=== PATIENT | female | born 1955 | race Caucasian/White ===

== ENCOUNTER 2016-06-13 17:42 | Emergency (ER) | payer BC ==
[~2016-06-13] VITALS: Ht 170.2 cm; Wt 81.2 kg
[~2016-06-13 17:42] MED LIST: BUSPAR15 MG PO; DICLOFENAC SODI50 MG PO; KLONOPIN0.5 M1 PO; PROZAC40 MG PO; TYLENOL ARTHRI650 MG PO
[2016-06-13 18:10] LABS: HEMATOCRIT 42.6 % (36.0-46.0); MCH 29.1 PG (29.0-34.0); MCHC 32.4 G/DL (30.0-36.0); MCV 89.9 FL (83-99); MEAN PLAT.VOLUME 9.8 uM^3 (9.5-12.4); PLATELET COUNT 268 K/uL (156-360); RBC DIS.WIDTH-CV 12.8 % (11.8-14.6); RBC DIS.WIDTH-SD 42.4 % (39-53); RED BLOOD COUNT 4.74 M/uL (3.80-5.20); WHITE BLOOD COUNT 5.8 K/uL (4.1-10.2)
[2016-06-13] MEDS ORDERED: KLONOPIN0.5 M1 PO (18:16)
[2016-06-13] MEDS ORDERED: PROZAC40 MG PO (18:16)
[2016-06-13] MEDS ORDERED: BUSPAR15 MG PO (18:17)
[2016-06-13] MEDS ORDERED: ANSAID100 MG PO (18:17)
[2016-06-13] MEDS ORDERED: ZANAFLEX2 M1 PO (18:18)
[2016-06-13 18:26] LABS: CHLORIDE 106 mEq/L (99-109); POTASSIUM 3.9 mEq/L (3.7-5.4); SODIUM 139 mEq/L (136-147)
[2016-06-13 18:28] LABS: GLUCOSE 91 mg/dL (70-99)
[2016-06-13 18:29] LABS: ANION GAP 7 MEQ/L (2-14)
[2016-06-13 18:30] LABS: TOTAL BILIRUBIN 0.3 mg/dL (0.0-1.0)
[2016-06-13 18:31] LABS: ALKALINE PHOSPHATASE 75 IU/L (3-129)
[2016-06-13 18:32] LABS: GFR ESTIMATE (CALCULATED) > 59 mL/min/
[2016-06-13 18:33] LABS: UREA NITROGEN (BUN) 16 mg/dL (9-23)
[2016-06-13 18:35] LABS: LIPASE 80 U/L (1.0-51.0)
[2016-06-13 18:41] LABS: ADD MIUA? NO; BILIRUBIN NEGATIVE; BLOOD NEGATIVE; COLOR YELLOW ((YELLOW)); GLUCOSE (STRIP) NEGATIVE; KETONES NEGATIVE; LEUKOCYTES NEGATIVE; NITRITE NEGATIVE; PROTEIN (STRIP) NEGATIVE; SPECIFIC GRAVITY 1.016 (1.000-1.030); UCUL ADDED? NO; UROBILINOGEN 0.2 MG/DL (0.2-1.0)
[2016-06-13 19:48] VITALS: BP 149/92
== END 2016-06-13 19:49 | disposition home or self-care (01) ==
LOC: EME 17:42
DX: R10.31 Right lower quadrant pain (principal); R74.8 Abnormal levels of other serum enzymes
CPT/HCPCS: 80053; 81003; 83690; 85027; 99281; 99284